=== PATIENT | female | born 1975 | race Hispanic/Latino ===

== ENCOUNTER 2023-12-19 09:02 | Emergency (ER) | payer SELFPAY ==
[2023-12-19 09:09] VITALS: BP 119/78
--- NOTE | 2023-12-19 09:52 | ED.GENMED ---
History of Present Illness
General
Chief Complaint: Skin Problem
Source: patient
Time Seen by Provider: 12/19/23 09:28
Travel History
Have you had any contact with someone who has COVID-19?: No
Do you have any symptoms of coronavirus? Fever > 100 degrees, chills, cough, shortness of breath, sore throat, loss of taste or smell, muscle aches, or headache?: No
History of Present Illness
History of Present Illness:
[place]se language line, Ignacio, used for interpretation
48-year-old female with past medical history of hypothyroidism presenting to the emergency department for evaluation after she states she noticed a small area on her section scar opened and had some slight bleeding but has now been
increasingly painful over the last 2 weeks. Patient notes that around 4 years ago she started to feel a ball in the area where the pain is occurring and believes that due to a cough that she had over the last 2 weeks caused this area to open and
now become more painful. She denies any fevers, chills, rigors or any other infectious symptoms. Triage noted draining pus however patient notes that the area is only intermittently bleeding. She has not attempted any medications for relief. No
other concerns at this time.
Past History
Past History
ED Past Medical History: Hypothyroidism
ED Past Surgical History:
Social History
Tobacco: Non-smoker
Alcohol: None
Drug: None
Personal:
Living: with family
Review of Systems
Review of Systems
All Other Systems: ROS reviewed and negative except as documented in HPI and ROS
Phy Exam
Physical Exam
Physical Exam:
GENERAL: Alert , in no apparent distress
EYE: conjunctiva clear
Head: Normocephalic atraumatic
NECK: Supple,
ENT: mmm.
LUNGS: no acute respiratory distress
Abdomen: Surgical scar noted and along the mid abdomen there is a small dehisced area that is erythematous, tender to palpation and hot to the touch. There is no fluctuance. No purulence expressed.
NEUROLOGICAL: Alert and oriented
SKIN: Warm and dry, skin intact.
MUSCULOSKELETAL: well perfused.
PSYCH: Normal and appropriate interaction.
Scores
Heart Failure Risk
Heart Failure Risk Score: Not Applicable
Heart Score for Chest Pain Patients
STEMI patient?: Not applicable
Withdrawal Assessment of Alcohol
Withdrawal Assessment Completed?: Not applicable
Course
Vital Signs
Initial and Last Documented VS:
Initial Vital Signs
Temp Pulse Resp BP Pulse Ox
98.2 F 72 18 119/78 100
12/19/23 09:09 12/19/23 09:09 12/19/23 09:09 12/19/23 09:09 12/19/23 09:09
Last Documented Vital Signs
Temp Pulse Resp BP Pulse Ox
98.2 F 72 18 119/78 100
12/19/23 09:09 12/19/23 09:09 12/19/23 09:09 12/19/23 09:09 12/19/23 09:09
MDM/Problems Addressed
Differential Diagnosis Includes:
Cellulitis, abscess, dehisced surgical scar
MDM/Problems Addressed:
48-year-old female presenting emergency department for evaluation after she noticed a small opening along her section surgical scar. The area does appear to have small area of cellulitis. No findings to suggest abscess however it is
certainly possible this could be a deeper infection. Patient is afebrile, no tachycardia and is otherwise well-appearing. Will trial a course of doxycycline. Patient follows up with the in [facility] and I advised that she make an appoint
for follow-up. If unable to do so and any worsening symptoms patient was encouraged to return to the ER. Patient feels comfortable with this plan. Stable for discharge home.
*Pulse Oximetry
Patient hypoxic: no
*Critical Care Note
Total Time (30-74mins, 75-104mins- exclusive of procedures): Not Applicable
ED Attending Note
-
Portions of this chart may have been created with voice recognition software.� Occasional wrong word or��sound alike� substitutions may have occurred due to the inherent limitations of voice recognition software.
Discharge Plan
Departure
Patient Disposition: Home (Routine Discharge)
Date of Disposition: 12/19/23
Time of Disposition: 09:52
Patient with high blood pressure during this ER visit?: No
Discharge Problem:
Cellulitis of abdominal wall
Instructions: Cellulitis (Skin Infection), Adult (DC)
Prescriptions:
New
doxycycline hyclate 100 mg tablet
100 mg PO BID 10 Days Qty: 20 0RF
Referrals:
[facility] [Outside]
Interventions
Interventions:
*Risk Screen - Suicide Last Done: 12/19/23 09:21
*General Assessment Last Done: 12/19/23 09:26
*Neglect/Abuse Screening Last Done: 12/19/23 09:21
*ED COVID-19 Vaccine History Last Done: 12/19/23 09:09
*Nursing Disposition Last Done: 12/19/23 10:14
ED-Skin Assessment Last Done: 12/19/23 09:25
Discharge Date and Time
Print Language: ARMENIAN
== END 2023-12-19 10:30 | disposition home or self-care (01) ==
LOC: EMR 09:02
PROVIDERS: EMERGENCY PHYSICIAN Emergency Medicine
DX: L03.311 Cellulitis of abdominal wall (principal); E03.9 Hypothyroidism, unspecified
CPT/HCPCS: 99283